=== PATIENT | male | born 1945 | race American Indian/Alaskan Native ===

== ENCOUNTER 2017-11-25 07:48 | Emergency (ER) | payer MEDICARE, SELFPAY ==
[2017-11-25 07:43] VITALS: BP 120/53; PULSE 88; RESP 18; TEMP 36.7; O2SAT 94; BMI 24.0
[2017-11-25 08:05] VITALS: BP 120/53; PULSE 91; RESP 18; TEMP 36.7; O2SAT 94
[2017-11-25 08:27] LABS: Add Manual Diff / Slide Review NO; Basophils Percent Auto 0.4 % (0-2); Eosinophils Percent Auto 0.5 % (2-4); Hematocrit 42.8 % (41-53); Hemoglobin 14.5 g/dL (13.5-17.5); Lymphocytes Percent Auto 9.7 % (25-40); Mean Corpuscular Hemoglobin 27.3 PG (26-34); Mean Corpuscular Volume 80.3 fL (80-100); Monocytes Percent Auto 6.7 % (3-14); Neutrophils Absolute Auto 8000 /uL (3000-5900); Neutrophils Percent Auto 82.7 % (50-75); Platelet Count 353 X10^3/uL (150-400); Red Blood Cell Count 5.33 X10^6/uL (4.5-5.9); White Blood Cell Count 9.7 X10^3/uL (4.5-11.0)
[2017-11-25 08:32] LABS: BUN Creatinine Ratio 10.9 (6-22); Blood Urea Nitrogen 12 mg/dL (9-20); Calcium 8.6 mg/dL (8.4-10.2); Carbon Dioxide 13 mmol/L (22-32); Chloride 96 mmol/L (98-107); Estimated Glomerular Filt Rate > 60.0 mL/min (>60); Glucose 108 mg/dL (80-110); HEMOLYSIS 165 (0-50); Magnesium 2.4 mg/dL (1.6-2.3); Potassium 5.3 mmol/L (3.4-5.1); Sodium 128 mmol/L (137-145)
[2017-11-25 08:48] LABS: Prolactin 24.6 ng/mL (3.7-17.9)
[2017-11-25 08:59] VITALS: BP 109/43; PULSE 64; RESP 23; O2SAT 98
--- NOTE | 2017-11-25 09:04 | ED.SEIZURE ---
HPI - Seizure General Chief Complaint: Seizure Stated Complaint: Siezures Time Seen by Provider: 11/25/17 09:04 Source: patient Mode of arrival: EMS Limitations: no limitations History of Present Illness HPI Narrative: The patient had 2 seizures in rapid succession this morning. He takes Lamictal, he is generally very good about taking his medications. His last seizure was 6 months ago. Seizures are generally infrequent. He denies any recent illness. He has had no fever, no URI symptoms, and no GI or symptoms. He arrives by EMS, by the time of my assessment there is no postictal phase. He is alert and well. He was at the local [employer] last night. He was winning, doing well. He was up until 530 this morning. He had the seizures after returning to his room. Related Data Home Medications Medication Instructions Recorded Confirmed [HYPERTENSION MED] #0 07/21/16 Previous Rx's Medication Instructions Recorded levetiracetam [Keppra] 500 mg PO BID 30 Days #0 tab 07/28/16 Allergies Allergy/AdvReac Type Severity Reaction Status Date / Time No Known Allergies Allergy Uncoded 09/02/17 11:57 Review of Systems Review of Systems All systems reviewed & are unremarkable except as noted in HPI and below Constitutional Denies chills, Denies fever(s), Denies lethargy and Denies weakness Eyes Denies change in vision, Denies eye discharge, Denies irritation and Denies loss of vision ENT Ears, Nose, Mouth, and Throat: Denies change in voice, Denies neck pain and Denies sore throat Cardiovascular Denies chest pain, Denies irregular heart rhythm, Denies lightheadedness, Denies palpitations, Denies dyspnea, Denies dyspnea on exertion and Denies orthopnea Respiratory Denies cough, Denies dyspnea, Denies dyspnea on exertion and Denies wheezing Gastrointestinal Gastrointestinal: Denies abdominal pain, Denies change in bowel habits, Denies diarrhea, Denies nausea and Denies vomiting Musculoskeletal Denies neck pain Integumentary/Breasts Denies pruritus, Denies erythema, Denies rash and Denies wounds Neurologic Reports as per HPI, Denies loss of vision and Denies weakness Comments: Two witnessed seizures this morning. Endocrine Denies palpitations Allergic/Immunologic Denies wheezing [facility] Medical History Hypertension (Acute) Seizure (Acute) Social History Smoking Status: Never smoker Exam Initial Vital Signs Initial Vital Signs: Vital Signs Temperature 98.1 F 11/25/17 07:43 Pulse Rate 88 11/25/17 07:43 Respiratory Rate 18 11/25/17 07:43 Blood Pressure 120/53 L 11/25/17 07:43 Pulse Oximetry 94 11/25/17 07:43 Const General: cooperative and well developed Nutritional Appearance: well nourished Orientation: alert, awake, oriented x3 and not confused HENMT Head: normocephalic and atraumatic Nose: external nose normal and No nasal discharge Face and sinus: sinuses nontender, face symmetric, no sinus tenderness and No dry mucous membranes Mouth: oral mucosae normal, tongue normal and moist mucous membranes Teeth and gingiva: dentition normal Throat: tonsils normal and uvula midline Eyes General: appearance normal, both eyes and all related structures Eyelids: eyelids normal Conjunctivae: conjunctivae normal Sclera: sclerae normal Pupils: PERRL EOM: EOM intact bilaterally Chest Chest: normal inspection of the chest Resp Effort & Inspection: normal respiratory effort, able to speak in complete sentences, no respiratory distress and no use of accessory muscles Auscultation: clear to auscultation bilaterally, no rales, no rhonchi and no wheezes Cardio Rate: regular rate Rhythm: regular rhythm Heart Sounds: no click, no gallops, no murmurs and no rubs Pulses: normal peripheral pulses GI Inspection: non-distended Palpation: soft, no hepatosplenomegaly, No guarding, No pulsatile mass and No tender Auscultation: normal bowel sounds Back/Spine/Pelvis Back: No CVA tenderness Cervical Spine: cervical ROM normal and No pain with cervical ROM Thoracic/Lumbar Spine: thoracic and lumbar spine normal to inspection Skin General: no rashes or lesions noted, No jaundice and No petechiae Neuro General: alert, oriented x3, gait normal and no focal motor deficits Speech: speech normal Motor: muscle tone normal throughout Extrem General: full ROM, no clubbing, cyanosis or edema, no pedal edema and no calf tenderness Psych Appearance: grossly normal and well kempt Mental Status: mental status grossly normal Speech and Movement: speech and movement normal Mood: congruent mood Affect: normal affect Attitude: cooperative Thought Process: normal Thought Content: normal and suicidality Judgment: judgment good Course Orders Ordered: ED Orders 11/25/17 07:45 Basic Metabolic Panel Stat Complete Blood Count AUTO DIFF Stat Magnesium Stat Prolactin Stat 11/25/17 08:30 Urine Microscopic Stat 11/25/17 09:19 Comprehensive Metabolic Panel Stat 11/25/17 09:20 Urine Drug Screen, Rapid Stat Sodium Chloride (Normal Saline 0.9%) 1,000 mls @ 1,000 mls/hr IV BOLUS ONE Stop: 11/25/17 10:18 Last Admin: 11/25/17 09:34 Dose: 1,000 mls/hr Discontinued Medications Lamotrigine (Lamictal) 200 mg PO NOW ONE Stop: 11/25/17 09:20 Last Admin: 11/25/17 09:34 Dose: 200 mg Vital Signs - 8 hr 11/25/17 07:43 11/25/17 08:05 11/25/17 08:59 Temperature 98.1 F 98.1 F Pulse Rate 88 91 H 64 Respiratory Rate 18 18 23 Blood Pressure 120/53 L Blood Pressure [Left Arm] 120/53 L 109/43 L Pulse Oximetry 94 94 98 11/25/17 09:40 Temperature Pulse Rate 64 Respiratory Rate 24 Blood Pressure Blood Pressure [Left Arm] 121/67 H Pulse Oximetry 99 MDM - Seizure Medical Records Attestation: I reviewed the patient's medical records. Lab Data Attestation: I reviewed the patient's lab results. Result diagrams: 11/25/17 07:45 11/25/17 07:45 Lab Results 11/25/17 11/25/17 11/25/17 Range/Units 07:45 07:45 08:30 WBC 9.7 (4.5-11.0) X10^3/uL RBC 5.33 (4.5-5.9) X10^6/uL Hgb 14.5 (13.5-17.5) g/dL Hct 42.8 (41-53) % MCV 80.3 (80-100) fL MCH 27.3 (26-34) PG MCHC 34.0 (30-36) % RDW 15.0 H (11.6-14.8) % Plt Count 353 (150-400) X10^3/uL Neut % (Auto) 82.7 H (50-75) % Lymph % (Auto) 9.7 L (25-40) % Boyle % (Auto) 6.7 (3-14) % Eos % (Auto) 0.5 L (2-4) % Baso % (Auto) 0.4 (0-2) % Neut # (Auto) 8000 H (8218-3611) /uL Sodium 128 L (137-145) mmol/L Potassium 5.3 H (3.4-5.1) mmol/L Chloride 96 L (98-107) mmol/L Carbon Dioxide 13 L (22-32) mmol/L BUN 12 (9-20) mg/dL Creatinine 1.10 (0.66-1.25) mg/dL Estimated GFR > 60.0 (>60) mL/min BUN/Creatinine Ratio 10.9 (6-22) Glucose 108 (80-110) mg/dL Calcium 8.6 (8.4-10.2) mg/dL Magnesium 2.4 H (1.6-2.3) mg/dL Prolactin 24.6 H (3.7-17.9) ng/mL Urine RBC 1-5/hpf (0-5/HPF) Urine WBC None seen (0-5/HPF) Urine Bacteria None seen (None) Ur Culture Indicated? Cult not indicated Micro UA Comment Not Reportable Urine Opiates Screen (Negative) Ur Oxycodone Screen (Negative) Urine Methadone Screen (Negative) Ur Barbiturates Screen (Negative) U Tricyclic Antidepress (Negative) Ur Phencyclidine Scrn (Negative) Ur Amphetamines Screen (Negative) U Methamphetamines Scrn (Negative) Ur MDMA Scrn (Ecstasy) (Negative) U Benzodiazepines Scrn (Negative) Urine Cocaine Screen (Negative) U Marijuana (THC) Screen (Negative) 11/25/17 Range/Units 09:20 WBC (4.5-11.0) X10^3/uL RBC (4.5-5.9) X10^6/uL Hgb (13.5-17.5) g/dL Hct (41-53) % MCV (80-100) fL MCH (26-34) PG MCHC (30-36) % RDW (11.6-14.8) % Plt Count (150-400) X10^3/uL Neut % (Auto) (50-75) % Lymph % (Auto) (25-40) % Boyle % (Auto) (3-14) % Eos % (Auto) (2-4) % Baso % (Auto) (0-2) % Neut # (Auto) (7602-5792) /uL Sodium (137-145) mmol/L Potassium (3.4-5.1) mmol/L Chloride (98-107) mmol/L Carbon Dioxide (22-32) mmol/L BUN (9-20) mg/dL Creatinine (0.66-1.25) mg/dL Estimated GFR (>60) mL/min BUN/Creatinine Ratio (6-22) Glucose (80-110) mg/dL Calcium (8.4-10.2) mg/dL Magnesium (1.6-2.3) mg/dL Prolactin (3.7-17.9) ng/mL Urine RBC (0-5/HPF) Urine WBC (0-5/HPF) Urine Bacteria (None) Ur Culture Indicated? Micro UA Comment Urine Opiates Screen Negative (Negative) Ur Oxycodone Screen Negative (Negative) Urine Methadone Screen Negative (Negative) Ur Barbiturates Screen Negative (Negative) U Tricyclic Antidepress Negative (Negative) Ur Phencyclidine Scrn Positive H (Negative) Ur Amphetamines Screen Negative (Negative) U Methamphetamines Scrn Negative (Negative) Ur MDMA Scrn (Ecstasy) Negative (Negative) U Benzodiazepines Scrn Negative (Negative) Urine Cocaine Screen Negative (Negative) U Marijuana (THC) Screen Negative (Negative) MDM Narrative Medical decision making narrative: His sodium is a little low, no other significant lab Abnormalities. He has been IV hydrated with normal saline as well as orally hydrated.Monitor shows normal sinus rhythm, vitals are normal throughout his stay in the ER. I suspect his seizures are related to fatigue. He has been asymptomatic, doing well since arrival. He will be discharged home. Discharge Plan Departure Patient Disposition: Home, Self-Care Clinical Impression: Seizure Instructions: DI for Seizure (Not Epilepsy/Seizure Disorder) Activity Restrictions/Additional Instructions: Take your medications as previously prescribed. Be sure to stay well hydrated, and get plenty of rest. Return here as needed. Prescriptions: No Action [HYPERTENSION MED] Qty: 0 RF: 0 levetiracetam [Keppra] 500 MG tablet 500 mg PO BID 30 Days Qty: 0 RF: 0
[2017-11-25] MEDS: SODIUM CHLORIDE 0.9% 1,000 ML 1000 ML IV (09:34)
[2017-11-25] MEDS: lamoTRIgine 100 MG TABLET 200 MG PO (09:34)
[2017-11-25 09:40] VITALS: BP 121/67; PULSE 64; RESP 24; O2SAT 99
[2017-11-25 09:41] LABS: Urine Amphetamines Negative (Negative); Urine Barbiturates Negative (Negative); Urine Benzodiazepines Negative (Negative); Urine Cocaine Negative (Negative); Urine MDMA Negative (Negative); Urine Methadone Negative (Negative); Urine Methamphetamines Negative (Negative); Urine Morphine/Opi cutoff 2000 Negative (Negative); Urine Oxycodone Negative (Negative); Urine Phencyclidine Positive (Negative); Urine Tetrahydrocannabinol Negative (Negative); Urine Tricyclic Antidepressant Negative (Negative)
--- NOTE | 2017-11-25 09:56 | PC.NURSE ---
[place], no sleep.
[2017-11-25 09:59] LABS: Bacteria Urine None Seen; WBC Urine None Seen (0-5/HPF)
[2017-11-25 10:00] VITALS: BP 128/51; PULSE 65; RESP 26; O2SAT 100
[2017-11-25 10:06] LABS: Culture Indicated Urine Cult Not Indicated; RBC Urine 1-5/HPF (0-5/HPF)
[2017-11-25 10:50] VITALS: BP 100/61; PULSE 63; RESP 18; O2SAT 99
== END 2017-11-25 11:04 | disposition home or self-care (01) ==
PROVIDERS: Emergency Provider Emergency Medicine; PCP Physician Assistant
DX: R56.9 Unspecified convulsions (principal)
CPT/HCPCS: 80048; 80305; 81003; 81015; 83735; 84146; 85025; 96360; 99283

== ENCOUNTER → 2018-03-24 10:07 | Outpatient (CLI) | payer MEDICARE, SELFPAY ==
--- NOTE | 2018-03-24 | DI.RAD.S_ITS ---
PROCEDURE: XR SHOULDER LT MIN 2V INDICATIONS: LEFT SHOULDER/ARM PAIN ARTHRITIS TECHNIQUE: 3 views of the shoulder were acquired. COMPARISON: [facility], , CHEST 1 VIEW, 07/10/2015, 3:01. [facility], , CHEST 1 VIEW, 06/28/2014, 16:35. FINDINGS: Bones: No fractures or dislocations. No suspicious bony lesions. Visualized ribs appear intact. Severe acromioclavicular and moderate to severe glenohumeral joint narrowing and periarticular osteophyte formation. Soft tissues: No suspicious soft tissue calcifications. IMPRESSION: Acromioclavicular and glenohumeral joint degeneration. Dictated by: Ariel Choudhury [facility] Interpreted: German Ojeda MD on 03/24/2018 at 13:58 Approved by: German Ojeda M.D. on 03/24/2018 at 15:39
--- NOTE | 2018-03-24 | DI.US.S_ITS ---
PROCEDURE: US RENAL COMPLETE INDICATIONS: CHRONIC KIDNEY DISEASE TECHNIQUE: Real-time scanning was performed of the kidneys and bladder, with image documentation. COMPARISON: None. FINDINGS: Kidneys: Kidneys are normal in size. Right kidney measures 10.3 cm long; left kidney measures 10.9 cm long. Right renal cortical thickness is 1.5 cm; left renal cortical thickness is 1.9 cm. Renal cortical echotexture is normal. No hydronephrosis or nephrolithiasis. No suspicious solid mass lesions. Bladder: Pre-void bladder volume is 90 mL. Post-void residual is 12 mL. Pre-void images demonstrate no intraluminal masses or stones. On pre-void images, right ureteral jets are noted with color Doppler interrogation. (Of note, ureteral jets may not be detectable in up to 25% of cases due to insufficient differences in specific gravity between ureteral and bladder urine). Miscellaneous: No free pelvic fluid. IMPRESSION: Normal kidneys. Dictated by: Ariel COBIAN Interpreted: German Ojeda MD on 03/24/2018 at 11:08 Approved by: German Ojeda M.D. on 03/24/2018 at 15:41
--- NOTE | 2018-03-24 | DI.RAD.S_ITS ---
PROCEDURE: XR CERVICAL SPINE 4V OR 5V INDICATIONS: LEFT SHOULDER ARM PAIN, ARTHRITIS TECHNIQUE: 5 views of the cervical spine were acquired. COMPARISON: None. FINDINGS: Bones: No fractures or dislocations to the T1 level. No suspicious bony lesions. Mild multilevel mid and inferior cervical spine disc degeneration. Oblique views demonstrate mild bilateral neural foraminal narrowing at the C5-C6, C6-C7 and C7-T1 levels. Mild multilevel uncovertebral hypertrophy. Soft tissues: Prevertebral soft tissues are normal in thickness. Posterior dystrophic calcification. IMPRESSION: Multilevel degenerative change. Dictated by: Ariel Choudhury [facility] Interpreted: German Ojeda MD on 03/24/2018 at 13:59 Approved by: German Ojeda M.D. on 03/24/2018 at 15:39
== END ==
PROVIDERS: PCP Physician Assistant; Visit Provider Physician Assistant
DX: N18.9 Chronic kidney disease, unspecified (principal); M25.512 Pain in left shoulder; M19.012 Primary osteoarthritis, left shoulder; M50.30 Other cervical disc degeneration, unspecified cervical region; M48.02 Spinal stenosis, cervical region
CPT/HCPCS: 72050; 73030; 76770

== ENCOUNTER → 2024-01-05 10:47 | Outpatient (CLI) | payer MEDICARE, SELFPAY ==
--- NOTE | 2024-01-05 10:53 | DI.RAD.S_ITS ---
PROCEDURE: XR CHEST 2V INDICATIONS: PNEOMINA TECHNIQUE: 2 views of the chest were acquired. COMPARISON: [facility], CHEST 1 VIEW, 07/10/2015, 3:01. [facility], CHEST 1 VIEW, 06/28/2014, 16:35. FINDINGS: Surgical changes and devices: None. Lungs and pleura: Suggestion of right posterior lower lobe infiltrates best seen on lateral view. No pleural effusions or pneumothorax. Mediastinum: Mediastinal contours are normal. Heart size is normal. Bones and chest wall: No suspicious bony abnormalities. Soft tissues appear unremarkable. IMPRESSION: Suggestion of right lower lobe pneumonic infiltrate Dictated by: Saul Carter M.D. on 01/05/2024 at 15:09 Approved by: Saul Carter M.D. on 01/05/2024 at 15:14
--- NOTE | 2024-01-05 10:53 | DI.RAD.S_ITS ---
PROCEDURE: XR HAND LT MIN 3V INDICATIONS: LEFT HAND PAIN TECHNIQUE: 3 views of the hand(s) acquired. COMPARISON: None. FINDINGS: Bones: No acute fracture or subluxation seen. Narrowing of the radiocarpal joint seen with old distal radial and ulnar fractures suggested. Possible old fracture of the scaphoid also noted. Soft tissues: No radiographically evident soft tissue swelling IMPRESSION: Suggestion of old wrist fracture with narrowing of the radiocarpal joint Additional findings as noted above Dictated by: Saul Carter M.D. on 01/05/2024 at 15:14 Approved by: Saul Carter M.D. on 01/05/2024 at 15:22
== END ==
PROVIDERS: PCP Physician Assistant; Referring Provider Student in an Organized Health Care Education/Training Program; Visit Provider Student in an Organized Health Care Education/Training Program
DX: J18.9 Pneumonia, unspecified organism (principal); M79.642 Pain in left hand
CPT/HCPCS: 71046; 73130